=== PATIENT | female | born 1955 | race Caucasian/White ===

== ENCOUNTER 2017-05-03 14:35 | Emergency (ER) | payer OTHER ==
[~2017-05-03] VITALS: Ht 167.6 cm; Wt 66.5 kg
[~2017-05-03 14:35] MED LIST: CRESTOR40 MG PO; DILAUDID2 MG PO; GLUCOPHAGE1000 MG PO; HUMALOG100 UNIT/2 SC; LANTUS 3 M100 UNITS1 SC; LO-DOSE ASPIRIN81 M1 PO; LOPRESSOR50 MG PO; MEDROL DOSEPAK4 MG PO; NORCO 5/3251 TABLET PO; ROXICODONE5 MG PO; ZOFRAN4 MG PO
[2017-05-03 14:59] LABS: BASOPHIL (%) 0.7 % (0-1); BASOPHIL COUNT 0.1 K/uL (0-0.1); EOSINOPHIL COUNT 0.2 K/uL (0-0.3); HEMATOCRIT 45.4 % (36.0-46.0); HEMOGLOBIN 15.4 G/DL (11.9-15.5); IMMATURE GRANULOCYTE (%) 0.5 % (0.0-0.7); LYMPHOCYTE (%) 20.4 % (15-42); LYMPHOCYTE COUNT 1.9 K/uL (1.0-2.8); MCH 29.1 PG (29.0-34.0); MCHC 33.9 G/DL (30.0-36.0); MCV 85.7 FL (83-99); MONOCYTE COUNT 1.1 K/uL (0-0.8); NEUTROPHIL (%) 64.4 % (45-76); NEUTROPHIL COUNT 5.9 K/uL (1.8-6.4); PLATELET COUNT 240 K/uL (156-360); RBC DIS.WIDTH-CV 12.7 % (11.8-14.6); WHITE BLOOD COUNT 9.1 K/uL (4.1-10.2)
[2017-05-03 15:11] LABS: CHLORIDE 103 mEq/L (99-109); D-DIMER ELISA < 150.00 ng/mLDDU (<230); POTASSIUM 3.9 mEq/L (3.7-5.4)
[2017-05-03 15:12] LABS: SODIUM 140 mEq/L (136-147)
[2017-05-03 15:13] LABS: GLUCOSE 204 mg/dL (70-99)
[2017-05-03 15:17] LABS: GFR ESTIMATE (CALCULATED) > 59 mL/min/
[2017-05-03 15:18] LABS: UREA NITROGEN (BUN) 22 mg/dL (9-23)
[2017-05-03 15:25] LABS: TROP-I INTERPRETATION NEGATIVE; TROPONIN-I 0.01 ng/mL (0.0-0.30)
[2017-05-03 16:13] LABS: THYROTROPIN (TSH) 1.3 MIU/L (0.4-5.5)
[2017-05-03] MEDS ORDERED: FLEXERIL10 MG PO (16:52)
[2017-05-03] MEDS ORDERED: GABAPENTIN300 MG PO (16:52)
[2017-05-03] MEDS ORDERED: LANTUS 3 M100 UNITS1 SC (17:02)
[2017-05-03 18:48] LABS: TROP-I INTERPRETATION NEGATIVE; TROPONIN-I 0.03 ng/mL (0.0-0.30)
[2017-05-03 19:10] VITALS: BP 116/55
== END 2017-05-03 19:11 | disposition home or self-care (01) ==
LOC: EME 14:35
PROVIDERS: Emergency Medicine
DX: I48.91 Unspecified atrial fibrillation (principal); I10 Essential (primary) hypertension; I25.10 Atherosclerotic heart disease of native coronary artery without angina pectoris; Z95.1 Presence of aortocoronary bypass graft; Z79.82 Long term (current) use of aspirin; Z88.5 Allergy status to narcotic agent
CPT/HCPCS: 71045; 80048; 83036; 84443; 84484; 85025; 85379; 85610; 85730; 93005; 99281; 99284

== ENCOUNTER 2017-09-29 22:40 | Emergency (ER) | payer OTHER ==
[~2017-09-29] VITALS: Ht 165.1 cm; Wt 74.4 kg
[~2017-09-29 22:40] MED LIST changes: +FLEXERIL10 MG PO; +GABAPENTIN300 MG PO
[2017-09-30] MEDS ORDERED: ROXICODONE5 MG PO (00:05)
[2017-09-30] MEDS ORDERED: ZOFRAN ODT4 MG PO (00:05)
[2017-09-30 00:35] VITALS: BP 178/87
== END 2017-09-30 00:35 | disposition home or self-care (01) ==
LOC: EME 22:40
DX: S42.212A Unspecified displaced fracture of surgical neck of left humerus, initial encounter for closed fracture (principal); S42.292A Other displaced fracture of upper end of left humerus, initial encounter for closed fracture; S80.212A Abrasion, left knee, initial encounter; S80.211A Abrasion, right knee, initial encounter; S50.312A Abrasion of left elbow, initial encounter; W01.0XXA Fall on same level from slipping, tripping and stumbling without subsequent striking against object, initial encounter; Y92.009 Unspecified place in unspecified non-institutional (private) residence as the place of occurrence of the external cause; I10 Essential (primary) hypertension; E11.9 Type 2 diabetes mellitus without complications; Z79.4 Long term (current) use of insulin; Z95.1 Presence of aortocoronary bypass graft; Z79.82 Long term (current) use of aspirin
CPT/HCPCS: 73030; 99281; 99284